=== PATIENT | male | born 1995 | race Caucasian/White ===

== ENCOUNTER 2021-12-23 07:13 | Emergency (ER) | payer BC ==
[~2021-12-23] VITALS: Ht 170.2 cm; Wt 72.6 kg
[2021-12-23] MEDS ORDERED: KETOROLAC 30 MG/ML VIAL IM ONE (07:20)
[2021-12-23 07:23] VITALS: BP 151/108
--- NOTE | 2021-12-23 07:32 | NUR ---
26/M BIB SELF WITH C/O TOOTHACHE SINCE YESTERDAY, STATES HE TOOK PAIN MEDICATION AT HOME WITH NO RELIEF, DENIES FEVERS OR CHILLS.
[2021-12-23] MEDS ORDERED: PENI500T20 PO (07:34)
[2021-12-23] MEDS ORDERED: ACET-8386 PO (07:34)
[2021-12-23] MEDS ORDERED: NAPR-54 PO (07:34)
--- NOTE | 2021-12-23 07:52 | NUR ---
Patient discharged with v/s stable. Written and verbal after care instructions ABOUT DENTAL ABSCESS given and explained. Patient alert, oriented and verbalized understanding of instructions. Ambulatory with steady gait. All questions addressed prior to discharge. ID band removed. Patient advised to follow up with PMD. Rx of NORCO 5-325MG, NAPROXEN, PENICILLIN given. Patient educated on indication of medication including possible reaction and side effects. Opportunity to ask questions provided and answered.
== END 2021-12-23 07:52 | disposition home or self-care (01) ==
LOC: MED 07:13
DX: K08.89 Other specified disorders of teeth and supporting structures (principal); Z79.899 Other long term (current) drug therapy
CPT/HCPCS: 96372; 99283; J1885